=== PATIENT | female | born 1965 | race Caucasian/White ===

== ENCOUNTER → 2016-10-21 | Outpatient (CLI) | payer OTHER ==
--- NOTE | 2016-10-21 18:57 | Diagnostic Imaging Report ---
Digital mammogram bilateral screening. This study was compared to the prior exams of 08/17/2015, 08/16/2014, and 08/15/2013. At this time, there are no current complaints. The current study was also evaluated with a Computer Aided Detection (CAD) system. FINDINGS: The fibroglandular tissue in both breasts is heterogeneously dense. This does limit the sensitivity of this exam. Overall, there does not appear to have been any significant change when compared to the prior study. No primary or secondary sign of malignancy is noted. IMPRESSION: There is no radiographic evidence for malignancy. ACR BI-RADS Category 1: Negative. Result letter will be mailed to the patient. Note: At least 10% of breast cancer is not imaged by mammography. Dictated by: Dictated on workstation # [id number]
== END ==
LOC: RAD 14:54
PROVIDERS: ATTEND Obstetrics & Gynecology
DX: Z12.31 Encounter for screening mammogram for malignant neoplasm of breast (principal)

== ENCOUNTER → 2017-10-22 | Outpatient (CLI) | payer OTHER ==
--- NOTE | 2017-10-23 19:03 | Diagnostic Imaging Report ---
INDICATION: Routine screening. Comparison is made with prior study from 10/21/2016 and 08/17/2015. The current study was also evaluated with a Computer Aided Detection (CAD) system. FINDINGS: Mild parenchymal density is noted bilaterally. Well-defined mass in the retroareolar left breast appears stable and most consistent with a benign etiology. No spiculated mass or malignant-appearing microcalcifications are seen. The axillae are unremarkable. IMPRESSION: No mammographic features suspicious for malignancy are identified. ACR BI-RADS Category 2: Benign findings. Result letter will be mailed to the patient. Note: At least 10% of breast cancer is not imaged by mammography. Dictated by: Dictated on workstation # [id number]
== END ==
LOC: RAD 15:12
PROVIDERS: ATTEND Obstetrics & Gynecology
DX: Z12.31 Encounter for screening mammogram for malignant neoplasm of breast (principal)
CPT/HCPCS: 77067

== ENCOUNTER → 2018-10-25 | Outpatient (CLI) | payer OTHER ==
--- NOTE | 2018-10-26 19:37 | Diagnostic Imaging Report ---
EXAM: Digital mammogram, bilateral screening with 3D tomosynthesis and Computer Aided Detection (CAD) system. COMPARISON: 10/22/2017, 10/21/2016 and 08/09/2015. There are no current complaints. FINDINGS: There are scattered fibroglandular densities in both breasts which could obscure a lesion. Overall, there does not appear to have been any significant change when compared to the prior exam. No primary or secondary sign of malignancy is noted. IMPRESSION: There is no radiographic evidence for malignancy. ACR BI-RADS Category 1: Negative. Result letter will be mailed to the patient. Note: At least 10% of breast cancer is not imaged by mammography. Dictated by: Dictated on workstation # [id number]
== END ==
LOC: RAD 15:19
PROVIDERS: ATTEND Obstetrics & Gynecology
DX: Z12.31 Encounter for screening mammogram for malignant neoplasm of breast (principal)
CPT/HCPCS: 77067

== ENCOUNTER → 2019-10-26 | Outpatient (CLI) | payer OTHER ==
--- NOTE | 2019-10-26 16:25 | Diagnostic Imaging Report ---
INDICATION: Routine screening. COMPARISON: 10/25/2018 and 10/22/2017. TECHNIQUE: 2D and 3D bilateral screening mammography was performed with CAD. FINDINGS: Scattered fibroglandular densities are identified bilaterally. The parenchymal pattern appears to be stable. The circumscribed density in the retroareolar left breast appears stable and most consistent with benign etiology. No new mass or malignant appearing microcalcifications are seen. The axillae are unremarkable. IMPRESSION: No mammographic features suspicious for malignancy are identified. ACR BI-RADS Category 2: Benign findings. Result letter will be mailed to the patient. Note: At least 10% of breast cancer is not imaged by mammography. Dictated by: Dictated on workstation # [id number]
== END ==
LOC: RAD 15:04
PROVIDERS: ATTEND Obstetrics & Gynecology
DX: Z12.31 Encounter for screening mammogram for malignant neoplasm of breast (principal)
CPT/HCPCS: 77067

== ENCOUNTER → 2020-12-20 | Outpatient (CLI) | payer OTHER ==
--- NOTE | 2020-12-21 08:12 | Diagnostic Imaging Report ---
EXAM: Digital mammogram bilateral screening COMPARISON: This study was compared to the prior exams of 10/26/2019, 10/25/2018 and 10/22/2017. At this time there are no current complaints. The fibroglandular tissue in both breasts is heterogeneously dense. This does limit the sensitivity of this exam. The 2.5 cm circumscribed asymmetry in the lateral retroareolar region of the left breast seen on multiple previous exams is again evident and does not appear to have changed significantly. This finding seems stable as far back as 08/16/2014. Consequently, I do suspect this is a benign process. There is no primary or secondary sign of malignancy noted. IMPRESSION: There is no evidence for malignancy. ACR BI-RADS Category 1: Negative. Result letter will be mailed to the patient. Note: At least 10% of breast cancer is not imaged by mammography. Dictated by: Dictated on workstation # [id number]
== END ==
LOC: RAD 11:04
PROVIDERS: ATTEND Obstetrics & Gynecology
DX: Z12.31 Encounter for screening mammogram for malignant neoplasm of breast (principal)
CPT/HCPCS: 77063; 77067

== ENCOUNTER → 2021-01-03 | Outpatient (CLI) | payer OTHER ==
--- NOTE | 2021-01-03 16:46 | Diagnostic Imaging Report ---
PROCEDURE: MRI lumbar spine. TECHNIQUE: Multiplanar, multisequence MRI of the lumbar spine was performed without contrast. INDICATION: Low back pain with right leg pain. COMPARISON: None. FINDINGS: The last well-formed disc space will labeled L5-S1 for the purposes of this examination. There is mild multilevel disc height loss and decreased T2 signal. There appears to be somewhat diffuse hypointensity of the bone marrow on T1-weighted imaging without a focal lesion seen. Vertebral body height is normal. No fracture is seen. The conus terminates in appropriate position. T12-L1: No significant disc bulge. No spinal canal or foraminal stenosis. L1-L2: No significant disc bulge. No spinal canal or foraminal stenosis. L2-L3: Mild disc bulge. No spinal canal or foraminal stenosis. L3-L4: Mild diffuse disc bulge and facet arthropathy. Minimal spinal canal narrowing. No foraminal stenosis. L4-L5: Diffuse disc bulge with right paracentral disc protrusion. Mild spinal canal narrowing. The protrusion may contact the right L5 nerve root. There is mild bilateral foraminal narrowing. L5-S1: Mild diffuse disc bulge. No spinal canal stenosis or foraminal stenosis. IMPRESSION: 1. Mild degenerative changes in the lower lumbar spine. Mild spinal canal and foraminal narrowing at L4-L5. Disc protrusion at this level may contact the right L5 nerve root. Dictated by: Dictated on workstation # [id number]
== END ==
LOC: RAD 15:48
PROVIDERS: ATTEND Physician Assistant
DX: M47.26 Other spondylosis with radiculopathy, lumbar region (principal); M51.16 Intervertebral disc disorders with radiculopathy, lumbar region; M48.061 Spinal stenosis, lumbar region without neurogenic claudication
CPT/HCPCS: 72148

== ENCOUNTER → 2021-12-25 | Outpatient (CLI) | payer OTHER ==
--- NOTE | 2021-12-26 09:23 | Diagnostic Imaging Report ---
Indication: Routine screening. Comparison is made with prior mammograms 12/20/2020 and 10/26/2019. 2-D and 3-D bilateral screening mammography was performed with CAD. Scattered fibroglandular densities are identified bilaterally. Circumscribed density in the retroareolar left breast is stable consistent with benign etiology. No new mass or malignant-appearing microcalcifications are seen. Axillae are unremarkable. IMPRESSION: BI-RADS Category 2 No mammographic features suspicious for malignancy are identified. ACR BI-RADS Category 2: Benign findings. Result letter will be mailed to the patient. Note: At least 10% of breast cancer is not imaged by mammography. Dictated by: Dictated on workstation # [id number]
== END ==
LOC: RAD 15:30
PROVIDERS: ATTEND Internal Medicine
DX: Z12.31 Encounter for screening mammogram for malignant neoplasm of breast (principal)
CPT/HCPCS: 77063; 77067

== ENCOUNTER → 2023-01-22 | Outpatient (CLI) | payer OTHER ==
--- NOTE | 2023-01-22 12:46 | Diagnostic Imaging Report ---
Indication: Routine screening. Comparison is made with prior mammograms from 12/25/2021 and 12/20/2020. 2-D and 3-D bilateral screening mammography was performed with CAD. Scattered fibroglandular densities are identified bilaterally. A circumscribed nodule in the retroareolar left breast is stable. There is a new nodule in the central left breast on the MLO view. This is laterally located on the CC view and 7 to 8 cm from the nipple. This has fairly benign features. No spiculated mass or malignant-appearing microcalcifications are seen. Axillae are unremarkable. IMPRESSION: BI-RADS 0 New small circumscribed nodule outer left breast at approximately the 3:00 location, 7 to 8 cm from the nipple. Further evaluation of this area with ultrasound is recommended. ACR BI-RADS Category 0: Incomplete. (Needs additional imaging evaluation). Result letter will be mailed to the patient. Note: At least 10% of breast cancer is not imaged by mammography. Dictated by: Dictated on workstation # [id number]
== END ==
LOC: RAD 09:56
PROVIDERS: ATTEND Internal Medicine
DX: Z12.31 Encounter for screening mammogram for malignant neoplasm of breast (principal); N63.20 Unspecified lump in the left breast, unspecified quadrant
CPT/HCPCS: 77063; 77067

== ENCOUNTER → 2023-02-13 | Outpatient (CLI) | payer OTHER ==
--- NOTE | 2023-02-13 14:01 | Diagnostic Imaging Report ---
INDICATION: Mammographic abnormality with new nodule in left breast. Focused ultrasonography performed in the 4 o'clock position of the left breast. There is an approximately 0.5 x 0.3 cm anechoic structure compatible with breast cyst which corresponds in appearance and location to the mammographic abnormality seen on the screening study of 01/22/2023. IMPRESSION: Category 2, benign finding. Continued physical examination and annual mammographic follow-up are recommended. ACR BI-RADS Category 2: Benign findings. Result letter will be mailed to the patient. Note: At least 10% of breast cancer is not imaged by mammography. Dictated by: Dictated on workstation # [id number]
== END ==
LOC: RAD 13:08
PROVIDERS: ATTEND Internal Medicine
DX: N63.20 Unspecified lump in the left breast, unspecified quadrant (principal)